=== PATIENT | female | born 1960 | race Caucasian/White ===

== ENCOUNTER 2024-12-11 07:26 | Outpatient (CLI) | payer MEDICARE, SELFPAY ==
--- NOTE | 2024-12-11 09:15 | W.ANESCHARGE ---
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
== END 2024-12-11 07:27 | disposition home or self-care (01) ==
LOC: OP CLINIC 07:33
PROVIDERS: PCP Internal Medicine; Visit Provider Internal Medicine Gastroenterology
DX: Z12.11 Encounter for screening for malignant neoplasm of colon (principal); D12.0 Benign neoplasm of cecum; Z86.0101 Personal history of adenomatous and serrated colon polyps
CPT/HCPCS: 00811; 45385; 88305; J2704